=== PATIENT | male | born 1970 | race African-American/Black ===

== ENCOUNTER 2016-11-28 14:48 | Emergency (ER) | payer SELFPAY ==
[~2016-11-28] VITALS: Ht 190.5 cm; Wt 102.0 kg
[2016-11-28] MEDS ORDERED: IBUPROFEN 600MG TABLET PO ONE (17:00)
[2016-11-28] MEDS ORDERED: BACITRACIN ZINC OINT UDPKT TOP ONE (17:00)
[2016-11-28] MEDS ORDERED: HYDROCODONE/ACETAMINOPHEN 5/325MG TABLET PO ONE (17:00)
[2016-11-28 17:45] VITALS: BP 147/51
== END 2016-11-28 18:18 | disposition home or self-care (01) ==
LOC: ER 14:48
DX: S62.511A Displaced fracture of proximal phalanx of right thumb, initial encounter for closed fracture (principal); X58.XXXA Exposure to other specified factors, initial encounter; Y93.89 Activity, other specified; Y92.89 Other specified places as the place of occurrence of the external cause; Y99.8 Other external cause status
CPT/HCPCS: 29130; 73130; 99284; Z7610

== ENCOUNTER 2024-10-16 12:56 | Emergency (ER) | payer MEDICAID ==
[~2024-10-16] VITALS: Ht 182.9 cm; Wt 100.0 kg
[2024-10-16 12:58] VITALS: O2SAT 99
[2024-10-16 13:35] VITALS: TEMP 36.6
[2024-10-16 13:55] LABS: BASOPHILS % 0.6 % (0.0-2.0); EOSINOPHILS % 2.2 % (0.0-5.0); HEMATOCRIT. 37.3 % (42.0-52.0); HEMOGLOBIN. 12.6 g/dL (14.0-18.0); LYMPHOCYTES % 21.3 % (20.0-50.0); MEAN PLATELET VOLUME 7.5 fl (7.4-10.4); MONOCYTES % 6.0 % (2.0-8.0); NEUTROPHILS % 69.9 % (40.0-76.0); PLATELET 371 x1000/uL (130-400); RED BLOOD CELL COUNT 4.26 mill/uL (4.7-6.1); RED CELL DISTRIBUTION WIDTH 14.3 % (11.6-14.6)
[2024-10-16] MEDS: SODIUM CHLORIDE 0.9% 1,000 ML IV ONE (14:05)
[2024-10-16 14:10] LABS: CREATININE 1.4 mg/dL (0.6-1.3); UREA NITROGEN BLOOD 12 mg/dL (9-23)
[2024-10-16 14:11] LABS: ETHANOL BLOOD < 10 mg/dL (<10); TROPONIN I HIGH SENSITIVITY < 4 ng/L (3.0-53)
[2024-10-16 14:12] LABS: ASPARTATE AMINOTRANSFERASE 31 IU/L (<34); BILIRUBIN DIRECT 0.2 mg/dL (<=3.0); BILIRUBIN TOTAL 0.6 mg/dL (0.1-1.0)
[2024-10-16 14:13] LABS: PROTEIN TOTAL 6.7 g/dL (6.0-8.3)
[2024-10-16] MEDS: MECLIZINE 25MG TABLET PO ONE (14:24)
[2024-10-16] MEDS: ONDANSETRON HCL 4MG/2ML INJ IV ONE (14:24)
[2024-10-16 17:37] VITALS: BP 157/81; PULSE 75; RESP 18; O2SAT 98
== END 2024-10-16 17:42 | disposition home or self-care (01) ==
LOC: ER 12:56
DX: R55 Syncope and collapse (principal); D64.9 Anemia, unspecified; I10 Essential (primary) hypertension
CPT/HCPCS: 80076; 80048; 80320; 85025; 84484; 36415; 70450; 96360; 99284; J7030; Z7610 ×2; A4606; J2405; G0480